=== PATIENT | male | born 1980 | race Caucasian/White ===

== ENCOUNTER 2018-08-23 16:27 | Observation (INO) | payer MEDICAID, OTHER ==
[2018-08-23 16:32] VITALS: BMI 18.3
--- NOTE | 2018-08-23 16:55 | ED PDOC ---
Arrival/HPI - General Chief Complaint: Back Pain Time Seen by Provider: 08/23/18 16:34 Historian: Patient - History of Present Illness Time/Duration: Prior to Arrival Symptom Onset: Sudden Symptom Course: Unchanged Severity Level: Severe Activities at Onset: Rest Associated Symptoms (Text): 08/23/18 16:52 Patient reports a history of chronic low back pain. Last epidural was in 2016. He reports that he was in his basement today and developed acute onset of severe right lower back pain with radiation into his buttocks and right lower extremity and up into the right side of his neck. He describes it as an electric shock. He reports the pain was so severe that it made him pass out. He found himself on the basement floor with no injury. He called 911 and was brought to the emergency department. He denies any headache dizziness or lightheadedness. There is right lower extremity numbness. No weakness. No chest pain palpitations or dyspnea. There is nausea but no abdominal pain or vomiting. This has never happened previously. No medications and no known allergies. Past Medical History - Psychiatric Hx Substance Use: Yes Family/Social History - Physician Review Nursing Documentation Reviewed: Yes Family/Social History: Unknown Family HX Smoking Status: Never Smoked Hx Alcohol Use: No Hx Substance Use: Yes Substance used: marijuana Allergies/Home Meds Allergies/Adverse Reactions: Allergies No Known Allergies Allergy (Verified 08/23/18 16:32) Home Medications: Home Meds Medication Instructions Recorded Confirmed No Known Home Med 08/23/18 08/23/18 Review of Systems - Physician Review All systems were reviewed & negative as marked: Yes - Review of Systems Constitutional: absent: Fatigue, Fevers Respiratory: absent: SOB, Cough, Wheezing Cardiovascular: Syncope. absent: Chest Pain, Palpitations Gastrointestinal: Nausea. absent: Abdominal Pain, Constipation, Diarrhea, Vomiting, Anorexia Genitourinary Male: absent: Dysuria, Frequency, Hematuria Neurological: absent: Headache, Dizziness, Focal Weakness, Gait Changes, Speech Changes, Facial Droop, Disequilibrium, Seizure Physical Exam Vital Signs Temp Pulse Resp BP Pulse Ox 08/23/18 16:32 97.7 F 86 18 136/83 98 Temperature: Afebrile Blood Pressure: Normal Pulse: Regular Respiratory Rate: Normal Appearance: Positive for: Well-Appearing, Non-Toxic, Comfortable, Uncomfortable, Other (thin) Pain Distress: Mild Mental Status: Positive for: Alert and Oriented X 3 - Systems Exam Head: Present: Atraumatic, Normocephalic Pupils: Present: PERRL Extroacular Muscles: Present: EOMI Conjunctiva: Present: Normal Mouth: Present: Moist Mucous Membranes Pharnyx: No: ERYTHEMA, EXUDATE, TONSILS ENLARGED Neck: Present: Normal Range of Motion Respiratory/Chest: Present: Clear to Auscultation, Good Air Exchange. No: Respiratory Distress, Accessory Muscle Use Cardiovascular: Present: Regular Rate and Rhythm, Normal S1, S2. No: Murmurs Abdomen: No: Tenderness, Distention, Peritoneal Signs, Rebound, Guarding Back: Present: Normal Inspection, Paraspinal Tenderness (right lumbar paraspinous tenderness and right sciatic notch tenderness with no swelling or skin changes). No: CVA Tenderness, Midline Tenderness Upper Extremity: Present: Normal Inspection. No: Cyanosis, Edema Lower Extremity: Present: Normal Inspection. No: Edema Neurological: Present: GCS=15, CN II-XII Intact, Speech Normal, Motor Func Grossly Intact, Normal Sensory Function, Normal Cerebellar Funct Skin: Present: Warm, Dry, Normal Color. No: Rashes Psychiatric: Present: Alert, Oriented x 3, Normal Insight, Normal Concentration Medical Decision Making ED Course and Treatment: 08/23/18 17:17 EKG shows normal sinus rhythm rate approximately 80 with a right bundle branch block and no acute ST or T-wave changes. 08/23/18 17:[address] Reviewed and shows: FINDINGS: HEMORRHAGE:No intracranial hemorrhage. BRAIN:No mass effect or edema. The licona-white matter differentiation appears intact. Please note that MRI with diffusion imaging is more sensitive in the detection of acute ischemic event. VENTRICLES:No hydrocephalus. CALVARIUM:Unremarkable. PARANASAL SINUSES:Partial opacification/fluid involving the right greater than left maxillary sinuses, the bilateral sphenoid sinuses, and ethmoid air cells. MASTOID AIR CELLS:Unremarkable as visualized. No inflammatory changes. OTHER FINDINGS:None. IMPRESSION: No acute intracranial pathology identified. Partial opacification and fluid involving the paranasal sinuses as above; correlate for acute sinusitis. 08/23/18 18:22 Symptoms markedly improved post Toradol. 08/23/18 18:22 Discussed with hospitalist, patient will be placed on telemetry observation for syncope. - RAD Interpretation Radiology Orders: 11/13/18 16:50 HEAD W/O CONTRAST [CT] Stat 08/23/18 16:51 CHEST PORTABLE [RAD] Stat CT scan of the head as read by the radiologist shows no acute findings other than paranasal sinusitis. Chest one view as read by the radiologist shows no infiltrate effusion or cardiomegaly. Instructional Design Technologist: Radiologist Disposition/Present on Arrival - Present on Arrival Any Indicators Present on Arrival: No History of DVT/PE: No History of Uncontrolled Diabetes: No Urinary Catheter: No History of Decub. Ulcer: No History Surgical Site Infection Following: None - Disposition Have Diagnosis and Disposition been Completed?: Yes Diagnosis: Syncope, Low back pain Disposition: HOSPITALIZED Disposition Time: 18:21 Patient Plan: Observation, Telemetry Condition: IMPROVED Discharge Instructions (ExitCare): Syncope (ED) Forms: [employer] (N[place]ian)
[2018-08-23 17:41] LABS: URINE BILIRUBIN NEGATIVE (NEGATIVE); URINE BLOOD NEGATIVE (NEGATIVE); URINE GLUCOSE (UA) NEGATIVE (NEGATIVE); URINE LEUKOCYTE ESTERASE NEGATIVE Leu/uL (NEGATIVE); URINE PROTEIN NEGATIVE mg/dL (<30 mg/dL); URINE UROBILINOGEN 0.2 E.U./dL (<1 E.U./dL)
[2018-08-23 17:42] LABS: BASO # 0.01 K/mm3 (0.0-2.0); BASO % 0.1 % (0.0-3.0); EOS # 0.3 (0.0-0.7); EOS % 2.7 % (1.5-5.0); GRAN # 7.32 (1.4-6.5); GRAN % 74.4 % (50.0-68.0); HEMOGLOBIN 14.1 g/dL (14.0-18.0); LYMPH # 1.8 (1.2-3.4); LYMPH % 17.9 % (22.0-35.0); MEAN CELL VOLUME 85.3 fl (80.0-105.0); MEAN CORPUSCULAR HEMOGLOBIN 29.3 pg (25.0-35.0); MEAN CORPUSCULAR HGB CONC 34.3 g/dl (31.0-37.0); MEAN PLATELET VOLUME 10.7 fl (7.0-11.0); MONO # 0.5 (0.1-0.6); MONO % 4.9 % (1.0-6.0); RBC 4.82 10^6/uL (3.5-6.1); RED CELL DISTRIBUTION WIDTH 12.9 % (11.5-14.5); URINE APPEARANCE CLEAR (CLEAR); URINE COLOR YELLOW (YELLOW); WHITE BLOOD COUNT 9.8 10^3/uL (4.5-11.0)
--- NOTE | 2018-08-23 17:50 | CT ---
Date of service: 08/23/2018 PROCEDURE: CT HEAD WITHOUT CONTRAST. HISTORY: syncope COMPARISON: None available. TECHNIQUE: Axial computed tomography images were obtained through the head/brain without intravenous contrast. Radiation dose: Total exam DLP = 999.28 mGy-cm. This CT exam was performed using one or more of the following dose reduction techniques: Automated exposure control, adjustment of the mA and/or kV according to patient size, and/or use of iterative reconstruction technique. FINDINGS: HEMORRHAGE: No intracranial hemorrhage. BRAIN: No mass effect or edema. The licona-white matter differentiation appears intact. Please note that MRI with diffusion imaging is more sensitive in the detection of acute ischemic event. VENTRICLES: No hydrocephalus. CALVARIUM: Unremarkable. PARANASAL SINUSES: Partial opacification/fluid involving the right greater than left maxillary sinuses, the bilateral sphenoid sinuses, and ethmoid air cells. MASTOID AIR CELLS: Unremarkable as visualized. No inflammatory changes. OTHER FINDINGS: None. IMPRESSION: No acute intracranial pathology identified. Partial opacification and fluid involving the paranasal sinuses as above; correlate for acute sinusitis.
[2018-08-23 17:53] LABS: ALB/GLOB RATIO 1.3 (1.1-1.8); ALBUMIN 4.5 g/dL (3.0-4.8); ALT/SGPT 24 U/L (7-56); AST/SGOT 23 U/L (17-59); BLOOD UREA NITROGEN 18 mg/dL (7-21); CALCIUM 9.3 mg/dL (8.4-10.5); GFR NON-AFRICAN AMERICAN > 60
[2018-08-23 18:12] LABS: BARBITURATES, UR NEGATIVE (NEGATIVE); BENZODIAZEPINES, UR NEGATIVE (NEGATIVE); OPIATES, UR NEGATIVE (NEGATIVE); PHENCYCLIDINE, UR NEGATIVE (NEGATIVE)
[2018-08-23 18:17] LABS: TROPONIN I < 0.01 ng/mL
--- NOTE | 2018-08-23 18:21 | RAD ---
Date of service: 08/23/2018 HISTORY: Syncope. COMPARISON: No prior. FINDINGS: LUNGS: No active pulmonary disease. PLEURA: No significant pleural effusion identified, no pneumothorax apparent. CARDIOVASCULAR: No atherosclerotic calcification present Normal. OSSEOUS STRUCTURES: No significant abnormalities. VISUALIZED UPPER ABDOMEN: Normal. OTHER FINDINGS: None. IMPRESSION: No active disease.
--- NOTE | 2018-08-23 19:09 | CARD ---
APPROVED REPORT Date of service: 08/23/2018 EKG Measurement Heart [id number] CT 130P60 [id number] <Conclusion> Normal sinus rhythm with sinus arrhythmia Rightward axis Incomplete right bundle branch block Borderline ECG
--- NOTE | 2018-08-23 19:40 | CP.PCM.HP ---
<Siri Jorge - Last Filed: 08/23/18 22:03> History of Present Illness - History of Present Illness History of Present Illness: Resident Siri Jorge DO PGY-1 H&P Note for Hospitalist: Dr. Lemus: CC: Back pain Pt is a 37yo M with pmhx of L5 disc herniation who presents to the ED after having an episode of acute sharp R sided back pain earlier today. Pt states that he had walked about 10 miles which is normal for him and then came back home. He then went to his basement and was eating when he stood up and felt sharp R sided back pain. He states that the pain traveled down his R leg and up to his R neck. He then states that after the sudden pain he lost consciousness. He reports that he woke up a few minutes later and was able to get up with his own strength. He denies biting his tongue, or having any bladder or bowel incontinence upon regaining consciousness. He also denies having a history of seizures. He denies ever having this type of pain before. He reports being able to get up by himself and then calling the ambulance. He is currently denying fevers, but admits to chills, denies lightheadedness, denies weakness, but admits to headache and R sided leg numbness. He also denies chest pain, SOB, cough, palpitations, abd pain, n/v, saddle anesthesia, bladder or bowel incontinence, dysuria, hematuria, urinary frequency, heat or cold intolerance. Pmhx: L5 disc herniation Pshx: 2 epidural injections '16 Meds: None All: NKDA Social: Smokes marijuana but no tobacco use, denies EtOH or illicit drug use Fam Hx: Non-contributory PMD: None - Recently moved here Pharm: None Present on Admission - Present on Admission Any Indicators Present on Admission: No Review of Systems - Review of Systems All systems: reviewed and no additional remarkable complaints except Review of Systems: 12 point ROS is negative expect for noted in HPI above. Past Patient History - Past Social History Smoking Status: Never Smoked - PSYCHIATRIC Hx Substance Use: Yes - SURGICAL HISTORY Hx Surgeries: No Meds Allergies/Adverse Reactions: Allergies Allergy/AdvReac Type Severity Reaction Status Date / Time No Known Allergies Allergy Verified 08/23/18 16:32 Physical Exam - Constitutional Appears: Well, Non-toxic, No Acute Distress - Head Exam Head Exam: ATRAUMATIC, NORMAL INSPECTION, NORMOCEPHALIC - Eye Exam Eye Exam: EOMI, Normal appearance, PERRL - Respiratory Exam Respiratory Exam: Clear to Auscultation Bilateral, NORMAL BREATHING PATTERN. absent: Accessory Muscle Use, Decreased Breath Sounds, Rales, Rhonchi, Wheezes, Respiratory Distress, Stridor - Cardiovascular Exam Cardiovascular Exam: RRR, +S1, +S2. absent: Gallop, Rubs - GI/Abdominal Exam GI & Abdominal Exam: Normal Bowel Sounds, Soft. absent: Firm, Guarding, Tenderness - Extremities Exam Extremities exam: Positive for: full ROM, normal capillary refill, normal inspection, pedal pulses present. Negative for: calf tenderness, pedal edema, tenderness - Back Exam Back exam: NORMAL INSPECTION, paraspinal tenderness (Present on the R cervical region upon palpation.). absent: CVA tenderness (L), CVA tenderness (R), vertebral tenderness - Neurological Exam Neurological exam: Alert, CN II-XII Intact, Oriented x3 Additional comments: Pt denies any motor deficit, strength is 5/5 in all extremities b/l. Pts ROM is wnl in all extremities and there is no limitation of movement due to pain. Pt does not have a positive straight leg raise. - Psychiatric Exam Psychiatric exam: Normal Affect, Normal Mood - Skin Skin Exam: Dry, Intact, Normal Color, Warm Results - Vital Signs Recent Vital Signs: Last Vital Signs Temp 97.7 F 08/23/18 16:32 Pulse 62 08/23/18 18:40 Resp 20 08/23/18 18:40 BP 134/73 08/23/18 18:40 Pulse Ox 98 08/23/18 18:40 - Labs Result Diagrams: 08/23/18 17:37 08/23/18 17:37 Labs: Laboratory Results - last 24 hr 08/23/18 08/23/18 08/23/18 17:37 17:37 17:37 WBC 9.8 RBC 4.82 Hgb 14.1 Hct 41.1 L MCV 85.3 MCH 29.3 MCHC 34.3 RDW 12.9 Plt Count 159 MPV 10.7 Gran % 74.4 H Lymph % (Auto) 17.9 L [place] % (Auto) 4.9 Eos % (Auto) 2.7 Baso % (Auto) 0.1 Gran # 7.32 H Lymph # (Auto) 1.8 [place] # (Auto) 0.5 Eos # (Auto) 0.3 Baso # (Auto) 0.01 Sodium 138 Potassium 3.7 Chloride 103 Carbon Dioxide 27 Anion Gap 12 BUN 18 Creatinine 1.0 Est GFR ( Amer) > 60 Est GFR (Non-Af Amer) > 60 Random Glucose 126 H Calcium 9.3 Phosphorus 3.4 Magnesium 2.0 Total Bilirubin 0.8 AST 23 ALT 24 Alkaline Phosphatase 82 Lactate Dehydrogenase 362 Total Creatine Kinase 151 Troponin I < 0.01 Total Protein 8.0 Albumin 4.5 Globulin 3.5 Albumin/Globulin Ratio 1.3 Urine Color Yellow Urine Appearance Clear Urine pH 6.0 Ur Specific [place] >= 1.030 Urine Protein Negative Urine Glucose (UA) Negative Urine Ketones Negative Urine Blood Negative Urine Nitrate Negative Urine Bilirubin Negative Urine Urobilinogen 0.2 Ur Leukocyte Esterase Negative Urine Opiates Screen Urine Methadone Screen Ur Barbiturates Screen Ur Phencyclidine Scrn Ur Amphetamines Screen U Benzodiazepines Scrn U Oth Cocaine Metabols U Cannabinoids Screen Alcohol, Quantitative 08/23/18 08/23/18 17:37 17:37 WBC RBC Hgb Hct MCV MCH MCHC RDW Plt Count MPV Gran % Lymph % (Auto) [place] % (Auto) Eos % (Auto) Baso % (Auto) Gran # Lymph # (Auto) [place] # (Auto) Eos # (Auto) Baso # (Auto) Sodium Potassium Chloride Carbon Dioxide Anion Gap BUN Creatinine Est GFR ( Amer) Est GFR (Non-Af Amer) Random Glucose Calcium Phosphorus Magnesium Total Bilirubin AST ALT Alkaline Phosphatase Lactate Dehydrogenase Total Creatine Kinase Troponin I Total Protein Albumin Globulin Albumin/Globulin Ratio Urine Color Urine Appearance Urine pH Ur Specific [place] Urine Protein Urine Glucose (UA) Urine Ketones Urine Blood Urine Nitrate Urine Bilirubin Urine Urobilinogen Ur Leukocyte Esterase Urine Opiates Screen Negative Urine Methadone Screen Negative Ur Barbiturates Screen Negative Ur Phencyclidine Scrn Negative Ur Amphetamines Screen Negative U Benzodiazepines Scrn Negative U Oth Cocaine Metabols Negative U Cannabinoids Screen Positive H Alcohol, Quantitative < 10 Assessment & Plan - Assessment and Plan (Free Text) Assessment: Pt is a 37yo M with pmhx of L5 disc herniation who presents to the ED after havi ng an episode of acute sharp R sided back pain earlier today. In the ED CT head was done which showed no acute intracranial pathology and CXR also showed no active disease. Plan: 1. Acute back pain with hx of L5 disc herniation with syncopal episode: - CPK - CT Lumbar spine - Toradol 30mg IVP Q6 PRN - Neuro checks q4 - Orthostatic vitals - Fall precautions 2. PPX: DVT: SCDs GI: Protonix Case seen and discussed with Dr. Lynn Jorge DO Internal Medicine PGY-1 <Letha Bailey - Last Filed: 08/24/18 02:16> Results - Vital Signs Recent Vital Signs: Last Vital Signs Temp 98.3 F 08/23/18 21:49 Pulse 60 08/23/18 21:49 Resp 17 08/23/18 21:49 BP 131/66 08/23/18 21:49 Pulse Ox 98 08/23/18 21:49 - Labs Result Diagrams: 08/23/18 17:37 08/23/18 17:37 Labs: Laboratory Results - last 24 hr 08/23/18 08/23/18 08/23/18 17:37 17:37 17:37 WBC 9.8 RBC 4.82 Hgb 14.1 Hct 41.1 L MCV 85.3 MCH 29.3 MCHC 34.3 RDW 12.9 Plt Count 159 MPV 10.7 Gran % 74.4 H Lymph % (Auto) 17.9 L [place] % (Auto) 4.9 Eos % (Auto) 2.7 Baso % (Auto) 0.1 Gran # 7.32 H Lymph # (Auto) 1.8 [place] # (Auto) 0.5 Eos # (Auto) 0.3 Baso # (Auto) 0.01 Sodium 138 Potassium 3.7 Chloride 103 Carbon Dioxide 27 Anion Gap 12 BUN 18 Creatinine 1.0 Est GFR ( Amer) > 60 Est GFR (Non-Af Amer) > 60 Random Glucose 126 H Calcium 9.3 Phosphorus 3.4 Magnesium 2.0 Total Bilirubin 0.8 AST 23 ALT 24 Alkaline Phosphatase 82 Lactate Dehydrogenase 362 Total Creatine Kinase 151 Troponin I < 0.01 Total Protein 8.0 Albumin 4.5 Globulin 3.5 Albumin/Globulin Ratio 1.3 Urine Color Yellow Urine Appearance Clear Urine pH 6.0 Ur Specific [place] >= 1.030 Urine Protein Negative Urine Glucose (UA) Negative Urine Ketones Negative Urine Blood Negative Urine Nitrate Negative Urine Bilirubin Negative Urine Urobilinogen 0.2 Ur Leukocyte Esterase Negative Urine Opiates Screen Urine Methadone Screen Ur Barbiturates Screen Ur Phencyclidine Scrn Ur Amphetamines Screen U Benzodiazepines Scrn U Oth Cocaine Metabols U Cannabinoids Screen Alcohol, Quantitative 08/23/18 08/23/18 17:37 17:37 WBC RBC Hgb Hct MCV MCH MCHC RDW Plt Count MPV Gran % Lymph % (Auto) [place] % (Auto) Eos % (Auto) Baso % (Auto) Gran # Lymph # (Auto) [place] # (Auto) Eos # (Auto) Baso # (Auto) Sodium Potassium Chloride Carbon Dioxide Anion Gap BUN Creatinine Est GFR ( Amer) Est GFR (Non-Af Amer) Random Glucose Calcium Phosphorus Magnesium Total Bilirubin AST ALT Alkaline Phosphatase Lactate Dehydrogenase Total Creatine Kinase Troponin I Total Protein Albumin Globulin Albumin/Globulin Ratio Urine Color Urine Appearance Urine pH Ur Specific [place] Urine Protein Urine Glucose (UA) Urine Ketones Urine Blood Urine Nitrate Urine Bilirubin Urine Urobilinogen Ur Leukocyte Esterase Urine Opiates Screen Negative Urine Methadone Screen Negative Ur Barbiturates Screen Negative Ur Phencyclidine Scrn Negative Ur Amphetamines Screen Negative U Benzodiazepines Scrn Negative U Oth Cocaine Metabols Negative U Cannabinoids Screen Positive H Alcohol, Quantitative < 10 Attending/Attestation - Attestation I have personally seen and examined this patient.: Yes I have fully participated in the care of the patient.: Yes I have reviewed all pertinent clinical information: Yes Notes (Text): 08/24/18 01:53 Addendum:Social history includes history of smoking Marijuana(It is Incorrectly documented under Psych history.) Psych history: none O/E neck is supple.Slight R paracervical tenderness noted. Neuro Exam : No motor or sensory deficit noted. Leg raising test is negative on both sides. Assessment: 1. Acute backpain secondary to herniated disc.. 2.Syncopal Episode probably Vasovagal response to pain. Plan :Protonix ordered for GI prophylaxis. 08/24/18 02:15
[2018-08-24] MEDS: Pantoprazole 40 mg EC Tab PO SCH (05:58)
[2018-08-24 06:33] LABS: HEMOGLOBIN 14.7 g/dL (14.0-18.0); MEAN CELL VOLUME 85.5 fl (80.0-105.0); MEAN CORPUSCULAR HEMOGLOBIN 29.2 pg (25.0-35.0); MEAN CORPUSCULAR HGB CONC 34.1 g/dl (31.0-37.0); MEAN PLATELET VOLUME 11.1 fl (7.0-11.0); RBC 5.04 10^6/uL (3.5-6.1); RED CELL DISTRIBUTION WIDTH 12.9 % (11.5-14.5); WHITE BLOOD COUNT 7.8 10^3/uL (4.5-11.0)
[2018-08-24 07:18] LABS: ALB/GLOB RATIO 1.2 (1.1-1.8); ALBUMIN 4.4 g/dL (3.0-4.8); ALT/SGPT 24 U/L (7-56); AST/SGOT 31 U/L (17-59); BLOOD UREA NITROGEN 18 mg/dL (7-21); CALCIUM 9.4 mg/dL (8.4-10.5); GFR NON-AFRICAN AMERICAN > 60
--- NOTE | 2018-08-24 08:24 | CT ---
Date of service: 08/24/2018 PROCEDURE: CT Lumbar Spine without contrast HISTORY: Back pain hx of herniated disk COMPARISON: None available. TECHNIQUE: Axial computed tomography images were obtained of the lumbar spine without the use of intravenous contrast. Coronal and sagittal reformatted images were created and reviewed. Radiation dose: Total exam DLP = 306.99 mGy-cm. This CT exam was performed using one or more of the following dose reduction techniques: Automated exposure control, adjustment of the mA and/or kV according to patient size, and/or use of iterative reconstruction technique. FINDINGS: VERTEBRAE: Unremarkable. No fracture. Normal alignment. DISCS/SPINAL CANAL/NEURAL FORAMINA: L1-2: Unremarkable. L2-3: Unremarkable. L3-4: Mild disc bulge L4-5: Mild disc bulge L5-S1: Disc bulge and mild bilateral foraminal stenosis. PARASPINAL SOFT TISSUES: Unremarkable. OTHER FINDINGS: None. IMPRESSION: Mild disc bulge at L3-4 and L4-5. Disc bulge in degeneration at L5-S1 with mild foraminal stenosis. No focal disc herniation.
[2018-08-24 08:50] LABS: CK-MB 0.6 ng/mL (0.0-3.6)
[2018-08-24] MEDS ORDERED: Sodium Chloride 0.9% 100 ML IV SCH (09:45)
--- NOTE | 2018-08-24 10:23 | MRI ---
Date of service: 08/24/2018 PROCEDURE: MRI BRAIN WITHOUT CONTRAST HISTORY: loss of consciousness COMPARISON: None available. TECHNIQUE: Multiplanar, multisequence MR images of the brain were obtained without intravenous contrast enhancement. FINDINGS: HEMORRHAGE: None DWI: No evidence of an acute or early subacute infarction. BRAIN PARENCHYMA: No mass effect or edema. No atrophy or chronic microvascular ischemic changes. VENTRICLES: Unremarkable. No hydrocephalus. CRANIUM: Unremarkable. ORBITS: Grossly unremarkable. PARANASAL SINUSES/MASTOIDS: Clear VASCULAR SYSTEM: Skull base flow voids intact. OTHER FINDINGS: None. IMPRESSION: Unremarkable non contrast enhanced MRI of the brain.
--- NOTE | 2018-08-24 10:29 | CP.PCM.CON ---
History of Present Illness - History of Present Illness History of Present Illness: Neurology Consultation Note: Mr. Mckeon is a 37-year-old man with a past medical history of right L5 nerve root compression due to disc herniation, who states that he walked 10 miles yesterday, went home, sat down, stood up and had severe back pain, radiating to the neck/shoulder and resulted in sudden collapse and syncope. The patient regained consciousness, and was able to ambulate and presented to the ED for evaluation. He continues to have back pain, but no focal weakness or changes in his baseline function. MRI of the brain was normal. CT of the lumbar spine showed mild foraminal stenosis at L5/S1 with disc herniation. Review of Systems - Constitutional Constitutional: As Per HPI - EENT Eyes: absent: As Per HPI, Blind Spots, Blurred Vision, Change in Vision, Decreased Night Vision, Diplopia, Discharge, Dry Eye, Exophthalmos, Floaters, Irritation, Itchy Eyes, Loss of Peripheral Vision, Pain, Photophobia, Requires Corrective Lenses, Sees Flashes, Spots in Vision, Tunnel Vision, Other Visual Disturbances, Loss of Vision, Other Ears: absent: As Per HPI, Decreased Hearing, Ear Discharge, Ear Pain, Tinnitus, Abnormal Hearing, Disequilibrium, Dizziness, Other Nose/Mouth/Throat: absent: As Per HPI, Epistaxis, Nasal Congestion, Nasal Discharge, Nasal Obstruction, Nasal Trauma, Nose Pain, Post Nasal Drip, Sinus Pain, Sinus Pressure, Bleeding Gums, Change in Voice, Dental Pain, Dry Mouth, Dysphagia, Halitosis, Hoarsness, Lip Swelling, Mouth Lesions, Mouth Pain, Odynophagia, Sore Throat, Throat Swelling, Tongue Swelling, Facial Pain, Neck Pain, Neck Mass, Other - Cardiovascular Cardiovascular: absent: As Per HPI, Acrocyanosis, Chest Pain, Chest Pain at Rest, Chest Pain with Activity, Claudication, Diaphoresis, Dyspnea, Dyspnea on Exertion, Edema, Irregular Heart Rhythm, Pain Radiating to Arm/Neck/Jaw, Leg Edema, Leg Ulcers, Lightheadedness, Orthopnea, Palpitations, Paroxysmal Nocturnal Dyspnea, Pedal Edema, Radiating Pain, Rapid Heart Rate, Slow Heart Rate, Syncope, Other - Respiratory Respiratory: absent: As Per HPI, Cough, Dyspnea, Hemoptysis, Dyspnea on Exertion, Wheezing, Snoring, Stridor, Pain on Inspiration, Chest Congestion, Excessive Mucous Production, Change in Mucous Color, Pain with Coughing, Other - Gastrointestinal Gastrointestinal: absent: As Per HPI, Abdominal Pain, Belching, Bloating, Change in Bowel Habits, Change in Stool Character, Coffee Ground Emesis, Constipation, Cramping, Diarrhea, Dyspepsia, Dysphagia, Early Satiety, Excessive Flatus, Fecal Incontinence, Heartburn, Hematemesis, Hematochezia, Loose Stools, Melena, Nausea, Odynophagia, Temesmus, Vomiting, Other - Genitourinary Genitourinary: absent: As Per HPI, Change in Urinary Stream, Difficulty Urina ting, Dysuria, Flank Pain, Hematuria, Pyuria, Nocturia, Urinary Incontinence, Urinary Frequency, Urinary Hesitance, Urinary Urgency, Voiding Freq/Small Amts, Freq UTI, Hx Renal/Bladder Calculi, Hx /Renal Surgery, Bladder Distension, Other - Musculoskeletal Musculoskeletal: As Per HPI - Integumentary Integumentary: absent: As Per HPI, Acne, Alopecia, Bleeding Lesions, Change in Hair, Change in Nails, Change in Pigmentation, Changing Lesions, Dry Skin, Erythema, Furuncle, Hirsutism, Lesions, New Lesions, Non-Healing Lesions, Photosensitivity, Pruritus, Rash, Skin Pain, Skin Ulcer, Sores, Striae, Swelling, Unusual Bruising, Wounds, Jaundice, Other - Neurological Neurological: As Per HPI - Psychiatric Psychiatric: absent: As Per HPI, Abnormal Sleep Pattern, Anhedonia, Anxiety, Auditory Hallucinations, Behavioral Changes, Change in Appetite, Change in Libido, Confusion, Depression, Difficulty Concentrating, Hallucinations, Homicidal Ideation, Hopelessness, Irritability, Memory Loss, Mood Swings, Panic Attacks, Paranoia, Suicidal Ideation, Visual Hallucinations, Tactile Hallucinations, Other - Endocrine Endocrine: absent: As Per HPI, Change in Body Appearance, Change in Libido, Cold Intolorance, Deepening of Voice, Excessive Sweating, Fatigue, Flushing, Heat Intolorance, Increase in Ring/Shoe/Hat Size, Palpitations, Polydipsia, Polyphagia, Polyuria, Other - Hematologic/Lymphatic Hematologic: absent: As Per HPI, Easy Bleeding, Easy Bruising, Lymphadenopathy, Other Past Patient History - Past Social History Smoking Status: Current Some Days Smoker - MUSCULOSKELETAL/RHEUMATOLOGICAL Hx Falls: No Other/Comment: Sciatica. Epidural x2 - PSYCHIATRIC Hx Substance Use: Yes - SURGICAL HISTORY Hx Surgeries: No Meds Allergies/Adverse Reactions: Allergies Allergy/AdvReac Type Severity Reaction Status Date / Time No Known Allergies Allergy Verified 08/23/18 16:32 - Medications Medications: Current Medications Cyclobenzaprine HCl (Flexeril) 5 mg PO TID PRN PRN Reason: Pain, moderate (4-7) Sodium Chloride (Sodium Chloride 0.9%) 100 mls @ 125 mls/hr IV .Q48M [facility] Ketorolac Tromethamine (Toradol) 30 mg IVP Q6 PRN PRN Reason: Pain, moderate (4-7) Last Admin: 08/23/18 21:42 Dose: 30 mg Pantoprazole Sodium (Protonix Ec Tab) 40 mg PO 0600 [place] Last Admin: 08/24/18 05:58 Dose: 40 mg Physical Exam - Constitutional Appears: Well - Head Exam Head Exam: ATRAUMATIC, NORMAL INSPECTION, NORMOCEPHALIC - Eye Exam Eye Exam: EOMI, Normal appearance, PERRL - ENT Exam ENT Exam: Mucous Membranes Moist, Normal Exam - Neck Exam Neck exam: Positive for: Normal Inspection - Respiratory Exam Respiratory Exam: Clear to Auscultation Bilateral, NORMAL BREATHING PATTERN - Cardiovascular Exam Cardiovascular Exam: REGULAR RHYTHM, +S1, +S2 - GI/Abdominal Exam GI & Abdominal Exam: Normal Bowel Sounds, Soft. absent: Tenderness - Rectal Exam Rectal Exam: Deferred - Extremities Exam Extremities exam: Positive for: normal inspection - Back Exam Back exam: CVA tenderness (R), paraspinal tenderness, vertebral tenderness - Neurological Exam Neurological exam: Alert, CN II-XII Intact, Normal Gait, Oriented x3, Reflexes Normal - Psychiatric Exam Psychiatric exam: Normal Affect, Normal Mood - Skin Skin Exam: Dry, Intact, Normal Color, Warm Results - Vital Signs Recent Vital Signs: Last Vital Signs Temp 97.9 F 08/24/18 06:00 Pulse 62 08/24/18 06:00 Resp 22 08/24/18 06:00 BP 121/70 08/24/18 06:00 Pulse Ox 98 08/24/18 06:00 - Labs Result Diagrams: 08/24/18 06:00 08/24/18 06:00 Labs: Laboratory Results - last 24 hr 11/13/18 11/13/18 11/13/18 17:37 17:37 17:37 WBC 9.8 RBC 4.82 Hgb 14.1 Hct 41.1 L MCV 85.3 MCH 29.3 MCHC 34.3 RDW 12.9 Plt Count 159 MPV 10.7 Gran % 74.4 H Lymph % (Auto) 17.9 L [place] % (Auto) 4.9 Eos % (Auto) 2.7 Baso % (Auto) 0.1 Gran # 7.32 H Lymph # (Auto) 1.8 [place] # (Auto) 0.5 Eos # (Auto) 0.3 Baso # (Auto) 0.01 Sodium 138 Potassium 3.7 Chloride 103 Carbon Dioxide 27 Anion Gap 12 BUN 18 Creatinine 1.0 Est GFR ( Amer) > 60 Est GFR (Non-Af Amer) > 60 Random Glucose 126 H Calcium 9.3 Phosphorus 3.4 Magnesium 2.0 Total Bilirubin 0.8 AST 23 ALT 24 Alkaline Phosphatase 82 Lactate Dehydrogenase 362 Total Creatine Kinase 151 CK-MB (CK-2) CK-MB (CK-2) % Troponin I < 0.01 Total Protein 8.0 Albumin 4.5 Globulin 3.5 Albumin/Globulin Ratio 1.3 Urine Color Yellow Urine Appearance Clear Urine pH 6.0 Ur Specific [place] >= 1.030 Urine Protein Negative Urine Glucose (UA) Negative Urine Ketones Negative Urine Blood Negative Urine Nitrate Negative Urine Bilirubin Negative Urine Urobilinogen 0.2 Ur Leukocyte Esterase Negative Urine Opiates Screen Urine Methadone Screen Ur Barbiturates Screen Ur Phencyclidine Scrn Ur Amphetamines Screen U Benzodiazepines Scrn U Oth Cocaine Metabols U Cannabinoids Screen Alcohol, Quantitative 08/23/18 08/23/18 08/24/18 17:37 17:37 06:00 WBC RBC Hgb Hct MCV MCH MCHC RDW Plt Count MPV Gran % Lymph % (Auto) [place] % (Auto) Eos % (Auto) Baso % (Auto) Gran # Lymph # (Auto) [place] # (Auto) Eos # (Auto) Baso # (Auto) Sodium 141 Potassium 4.4 Chloride 106 Carbon Dioxide 27 Anion Gap 13 BUN 18 Creatinine 1.1 Est GFR ( Amer) > 60 Est GFR (Non-Af Amer) > 60 Random Glucose 95 Calcium 9.4 Phosphorus 4.0 Magnesium 2.2 Total Bilirubin 1.5 H AST 31 ALT 24 Alkaline Phosphatase 75 Lactate Dehydrogenase Total Creatine Kinase 297 H CK-MB (CK-2) 0.6 CK-MB (CK-2) % Cancelled Troponin I Total Protein 8.0 Albumin 4.4 Globulin 3.6 Albumin/Globulin Ratio 1.2 Urine Color Urine Appearance Urine pH Ur Specific [place] Urine Protein Urine Glucose (UA) Urine Ketones Urine Blood Urine Nitrate Urine Bilirubin Urine Urobilinogen Ur Leukocyte Esterase Urine Opiates Screen Negative Urine Methadone Screen Negative Ur Barbiturates Screen Negative Ur Phencyclidine Scrn Negative Ur Amphetamines Screen Negative U Benzodiazepines Scrn Negative U Oth Cocaine Metabols Negative U Cannabinoids Screen Positive H Alcohol, Quantitative < 10 08/24/18 06:00 WBC 7.8 D RBC 5.04 Hgb 14.7 Hct 43.1 MCV 85.5 MCH 29.2 MCHC 34.1 RDW 12.9 Plt Count 168 MPV 11.1 H Gran % Lymph % (Auto) [place] % (Auto) Eos % (Auto) Baso % (Auto) Gran # Lymph # (Auto) [place] # (Auto) Eos # (Auto) Baso # (Auto) Sodium Potassium Chloride Carbon Dioxide Anion Gap BUN Creatinine Est GFR ( Amer) Est GFR (Non-Af Amer) Random Glucose Calcium Phosphorus Magnesium Total Bilirubin AST ALT Alkaline Phosphatase Lactate Dehydrogenase Total Creatine Kinase CK-MB (CK-2) CK-MB (CK-2) % Troponin I Total Protein Albumin Globulin Albumin/Globulin Ratio Urine Color Urine Appearance Urine pH Ur Specific [place] Urine Protein Urine Glucose (UA) Urine Ketones Urine Blood Urine Nitrate Urine Bilirubin Urine Urobilinogen Ur Leukocyte Esterase Urine Opiates Screen Urine Methadone Screen Ur Barbiturates Screen Ur Phencyclidine Scrn Ur Amphetamines Screen U Benzodiazepines Scrn U Oth Cocaine Metabols U Cannabinoids Screen Alcohol, Quantitative Assessment & Plan (1) Syncope Assessment and Plan: Likely vaso-vagal syncope due to severe pain experienced by the patient. MRI brain is normal, exam is non-focal and the patient does not have any residual symptoms. Continue pain management per primary team. Cardiology input is also recommended for possible dysrrhythmia. Thank you for this consultation. Status: Acute
--- NOTE | 2018-08-24 12:16 | CP.PCM.PN ---
Subjective - Date & Time of Evaluation Date of Evaluation: 08/24/18 Time of Evaluation: 12:12 - Subjective Subjective: Resident Siri Jorge DO PGY-1 H&P Note for Hospitalist: Dr. Hunter: Pt was seen and examined this morning at bedside. He states that he is feeling much better and is no longer having any numbness or tingling. Pt denies any acute overnight events. He is able to tolerate his diet with no associated n/v. He is able to walk without assistance and is having no dysuria and is having normal BMs per pt. He denies any numbness, tingling, weakness, headache, dizziness, chest pain, SOB, cough, n/v, abd pain, dysuria, frequency. He continues to admit to cervical neck paraspinal muscle tightness and difficulty moving neck but with no associated numbness tingling. Objective - Vital Signs/Intake and Output Vital Signs (last 24 hours): Temp Pulse Resp BP Pulse Ox 97.9 F 62 22 121/70 98 08/24/18 06:00 08/24/18 06:00 08/24/18 06:00 08/24/18 06:00 08/24/18 06:00 Intake and Output: 08/24/18 08/24/18 06:59 18:59 Intake Total 240 Balance 240 - Medications Medications: Current Medications Cyclobenzaprine HCl (Flexeril) 5 mg PO TID PRN PRN Reason: Pain, moderate (4-7) Sodium Chloride (Sodium Chloride 0.9%) 100 mls @ 125 mls/hr IV .Q48M [facility] Ketorolac Tromethamine (Toradol) 30 mg IVP Q6 PRN PRN Reason: Pain, moderate (4-7) Last Admin: 08/23/18 21:42 Dose: 30 mg Pantoprazole Sodium (Protonix Ec Tab) 40 mg PO 0600 [facility] Last Admin: 08/24/18 05:58 Dose: 40 mg - Labs Labs: 08/24/18 06:00 08/24/18 06:00 - Constitutional Appears: Well, Non-toxic, No Acute Distress - Head Exam Head Exam: ATRAUMATIC, NORMAL INSPECTION, NORMOCEPHALIC - Eye Exam Eye Exam: EOMI, Normal appearance, PERRL - Neck Exam Neck Exam: Normal Inspection, Tenderness (paraspinal cervical tenderness upon palpation worse on R than L). absent: Lymphadenopathy, Meningismus - Respiratory Exam Respiratory Exam: Clear to Ausculation Bilateral, NORMAL BREATHING PATTERN. absent: Accessory Muscle Use, Decreased Breath Sounds, Rales, Rhonchi, Wheezes, Respiratory Distress, Stridor - Cardiovascular Exam Cardiovascular Exam: RRR, +S1, +S2. absent: Gallop, Rubs - GI/Abdominal Exam GI & Abdominal Exam: Soft, Normal Bowel Sounds. absent: Tenderness - Extremities Exam Extremities Exam: Full ROM, Normal Capillary Refill, Normal Inspection. absent: Calf Tenderness, Pedal Edema, Tenderness - Back Exam Back Exam: NORMAL INSPECTION. absent: CVA tenderness (L), CVA tenderness (R) - Neurological Exam Neurological Exam: Alert, Awake, Oriented x3 - Psychiatric Exam Psychiatric exam: Normal Affect, Normal Mood Assessment and Plan - Assessment and Plan (Free Text) Assessment: Pt is a 37yo M with pmhx of L5 disc herniation who presents to the ED after alvarado ving an episode of acute sharp R sided back pain earlier today. In the ED CT head was done which showed no acute intracranial pathology and CXR also showed no active disease. Plan: 1. Acute back pain with hx of L5 disc herniation with syncopal episode: Improv ing - CPK - elevated from first drawing and is now 297 - CT Lumbar spine - Showed no disc herniation but disc bulge and b/l forminal stenosis on L5-S1 - Toradol 30mg IVP Q6 PRN - Neuro checks q4 - Orthostatic vitals - Fall precautions - Neuro Consulted, recs appreciated - Cardio consulted, recs appreciated - Flexiril 5mg TID PRN for muscle spasm - Spine XR to assess for compression fracture 2. PPX: DVT: SCDs GI: Protonix Case seen and discussed with Dr. Dale Jorge DO Internal Medicine PGY-1
[2018-08-24] MEDS ORDERED: Sodium Chloride 0.9% 1,000 ML IV SCH (13:30)
--- NOTE | 2018-08-24 17:29 | CON ---
DATE: 08/24/2018 REASON FOR CONSULTATION: Syncopal episode. HISTORY OF PRESENT ILLNESS: The patient is a 37-year-old male originally from [facility], who has history of infrequently fainting spell in the past. He is otherwise athletic and smokes pot. He presented because of a fainting episode. The patient stated that after he arrived home and he was by himself, as he tried to stand up, he felt very lightheaded and collapsed to the floor. He sustained no injuries and does not recall experiencing palpitation prior to that. The patient stated he has had three to four similar episodes in the past over the recent years. The patient is unaware of any present cardiac history. The patient has chronic low back pain for which he takes medications, and at one point, he received subdural injection. SOCIAL HISTORY: He smokes pot. MEDICATIONS: Flexeril 5 mg t.i.d., Protonix 40 mg once a day, normal saline 125 mL an hour, Toradol 30 mg intravenous every 6 hours, PHYSICAL EXAMINATION GENERAL: The patient is a middle-aged male, who does not appear to be in any distress. VITAL SIGNS: Blood pressure 121/70, heart rate 62, temperature 97.9, and earlier heart rate was 46. HEENT: Normocephalic. CHEST: Clear. HEART: S1 and S2 regular. ABDOMEN: Soft. EXTREMITIES: No edema. IMAGING: Repeat EKG revealed sinus rhythm rightward axis, incomplete right bundle-branch block. Lumbar spine CAT scan without contrast, mild disk bulge L3-L4 and L4-L5, mild bulge and degeneration at L5-S1, mild foraminal stenosis. Brain MRI with contrast, unremarkable study. LABORATORIES: Urine drug screen is positive for cannabinoids. SMA-7 today is within normal limit. One set of troponin is negative. Hemoglobin, hematocrit, white count, and platelet count are within normal limit. ASSESSMENT: 1. Syncopal episode. 2. Cannabinoid abuse. 3. Chronic low back pain. RECOMMENDATIONS: Continue current pain management and telemetry monitoring. Obtain an echocardiogram. Joaquin Gallegos MD
--- NOTE | 2018-08-24 20:35 | CARD ---
APPROVED REPORT Date of service: 08/24/2018 EXAM: Two-dimensional and M-mode echocardiogram with Doppler and color Doppler. INDICATION Syncope 2D DIMENSIONS IVSd1.1 (0.7-1.1cm)LVDd5.0 (3.9-5.9cm) PWd0.9 (0.7-1.1cm)LVDs3.3 (2.5-4.0cm) FS (%) 34.3 %LVEF (%)62.9 (>50%) M-Mode DIMENSIONS Aortic Root2.90 (2.2-3.7cm)Aortic Cusp Exc.1.90 (1.5-2.0cm) Aortic Valve AoV Peak Bpjitsjf151.0cm/Ugo Peak GR.7mmHg Mitral Valve MV E Juonzxoq10.5cm/sMV A Yhuwofvv68.0cm/sE/A ratio1.7 TDI E/Lateral E'0.0E/Medial E'0.0 Pulmonary Valve PV Peak Oypydnwa23.1cm/sPV Peak Grad.2mmHg Tricuspid Valve TR Peak [id number]/sRAP [id number] Peak Gr.18mmHg [id number] LEFT VENTRICLE The left ventricle is normal size. There is normal left ventricular wall thickness. The left ventricular function is normal. The left ventricular ejection fraction is within the normal range. There is normal LV segmental wall motion. The left ventricular diastolic function is normal. RIGHT VENTRICLE The right ventricle is normal size. There is normal right ventricular wall thickness. The right ventricular systolic function is normal. ATRIA The left atrium size is normal. The right atrium size is normal. AORTIC VALVE The aortic valve is normal in structure. No aortic regurgitation is present. There is no aortic valvular stenosis. MITRAL VALVE The mitral valve is normal in structure. There is no mitral valve regurgitation noted. There is no mitral valve stenosis. TRICUSPID VALVE The tricuspid valve is normal in structure. There is mild tricuspid regurgitation. PULMONIC VALVE The pulmonary valve is normal in structure. There is no pulmonic valvular regurgitation. GREAT VESSELS The aortic root is normal in size. The IVC is normal in size and collapses >50% with inspiration. <Conclusion> The left ventricle is normal size. There is normal left ventricular wall thickness. The left ventricular function is normal. The left ventricular ejection fraction is within the normal range. There is normal LV segmental wall motion. The left ventricular diastolic function is normal. There is mild tricuspid regurgitation.
[2018-08-25 05:43] VITALS: RESP 20; O2SAT 98
[2018-08-25] MEDS: Pantoprazole 40 mg EC Tab PO SCH (05:57)
[2018-08-25 06:53] LABS: ALB/GLOB RATIO 1.2 (1.1-1.8); ALBUMIN 4.1 g/dL (3.0-4.8); ALT/SGPT 25 U/L (7-56); AST/SGOT 29 U/L (17-59); BLOOD UREA NITROGEN 15 mg/dL (7-21); GFR NON-AFRICAN AMERICAN > 60
[2018-08-25 06:57] LABS: HEMOGLOBIN 14.2 g/dL (14.0-18.0); MEAN CORPUSCULAR HEMOGLOBIN 29.6 pg (25.0-35.0); MEAN CORPUSCULAR HGB CONC 34.5 g/dl (31.0-37.0); MEAN PLATELET VOLUME 10.8 fl (7.0-11.0); RBC 4.79 10^6/uL (3.5-6.1); RED CELL DISTRIBUTION WIDTH 12.8 % (11.5-14.5); WHITE BLOOD COUNT 6.5 10^3/uL (4.5-11.0)
[2018-08-25 09:05] LABS: CK-MB 0.3 ng/mL (0.0-3.6)
--- NOTE | 2018-08-25 10:34 | PCM.EEG ---
Electroencephalogram Report - Electroencephalogram Report Procedure Date: 08/24/18 Medication: Ketorolac, pantoprazole Interpretation: Technical Information: This was a 16 -channel EEG, 1-channel EKG routine EEG performed using an [employer] machine. Electrodes were applied using the 10/20 international placement system. Start; 13;31 End; ;18 Total 47 minutes. Clinical Information: 37 y/o man with an episode of LOC. During resting wakefulness there was a symmetric posterior dominant rhythm at 8.5-9.5 Hz, 30-50 uV, which was reactive to eye opening and closing. . Drowsiness was associated with fragmentation of the posterior dominant rhythm and with slow roving eye movements seen at 13;41. . Light sleep was recorded and was characterized by central vertex waves, sleep spindles, and bilateral theta slowin seen at 14;00. Hyperventilation and photic stimulation were performed and there were no changes on the record. Focal abnormality; none ECG was associated with a normal sinus rhythm. Impression: This is a normal awake drowsy and sleep electroencephalogram.
--- NOTE | 2018-08-25 10:47 | RAD ---
Date of service: 08/25/2018 PROCEDURE: Cervical Spine Radiographs. HISTORY: Pain. COMPARISON: None available. FINDINGS: BONES: There is reversal of the normal lordotic curvature. This could be due to muscular spasm or positioning. DISC SPACES: Disc degeneration with anterior osteophytes at C5-6 and C6-7 SOFT TISSUES: Normal. No prevertebral soft tissue swelling. OTHER FINDINGS: None. IMPRESSION: Reversal of the normal lordotic curvature. Mild disc degeneration C5-6 and C6-7
--- NOTE | 2018-08-25 10:48 | RAD ---
Date of service: 08/25/2018 HISTORY: N COMPARISON: No prior. FINDINGS: BONES: Alignment maintained. No fracture. DISC SPACES: Normal. SOFT TISSUES: Normal. OTHER FINDINGS: None. IMPRESSION: Normal radiographs of the thoracic spine.
--- NOTE | 2018-08-25 10:49 | RAD ---
Date of service: 08/25/2018 PROCEDURE: Radiographs of the Lumbar Spine. HISTORY: N COMPARISON: No prior. FINDINGS: BONES: Normal alignment. No listhesis. No fracture. DISC SPACES: Disc degeneration is seen at L5-S1 with loss of disc height OTHER FINDINGS: None. IMPRESSION: Disc degeneration L5-S1
[2018-08-25 11:38] VITALS: BP 129/89; TEMP 98.1
[2018-08-25 14:15] VITALS: PULSE 64
[2018-08-25] MEDS ORDERED: Influenza Vaccine 60 mcg/0.5 mL SYR (4YR UP) IM ONE (14:27)
--- NOTE | 2018-08-25 14:32 | CP.PCM.PN ---
<Romain Huff - Last Filed: 08/25/18 14:13> Subjective - Date & Time of Evaluation Date of Evaluation: 08/25/18 Time of Evaluation: 12:40 - Subjective Subjective: Romain Huff- Internal Medicine Resident- Progress Note on Behalf of Neurology Team Subjective: Patient seen and examined at bedside. No acute events overnight. States back and neck pain has significantly improved relative to baseline. Offers no new complaints at this time. Denies weakness, dizziness, headache, numbness, and focal deficits. 12 point ROS negative except as indicated in the HPI Physical Examination: - Constitutional Appears: Well, Non-toxic, No Acute Distress - Head Exam Head Exam: ATRAUMATIC, NORMAL INSPECTION, NORMOCEPHALIC - Eye Exam Eye Exam: EOMI, Normal appearance - ENT Exam ENT Exam: Mucous Membranes Moist, Normal Exam, No tongue laceration - Neck Exam Neck Exam: Normal Inspection,. absent: Lymphadenopathy, Meningismus - Respiratory Exam Respiratory Exam: Clear to Auscultation Bilateral, NORMAL BREATHING PATTERN. absent: Accessory Muscle Use, Rales, Rhonchi, Wheezes, Respiratory Distress - Cardiovascular Exam Cardiovascular Exam: REGULAR RHYTHM, +S1, +S2 - GI/Abdominal Exam GI & Abdominal Exam: Normal Bowel Sounds, Soft. absent: Distended, Firm, Guarding, Rebound, Rigid, Tenderness - Back Exam Back Exam: NORMAL INSPECTION. absent: CVA tenderness (L), CVA tenderness (R) - Extremities Exam Extremities exam: negative for clubbing and cyanosis - Neurological Exam Neurological exam: awake, alert, orientated x 3, responds to verbal stimuli, answers questions appropriately, follows commands, moves extremities past midline, ambulates without overt difficulty, muscle strength 5/5 all extremities, sensation intact to touch throughout, CN II- XII intact bilaterally - Skin Skin Exam: Intact, Normal Color, Warm Assessment and Plan: Pt is a 37 year old male with a past medical history of L5 disc herniation who was admitted for evaluation and treatment of back pain with associated syncopal episode. Neurology was consulted for management of syncopal episode. Syncope - 08/23/[address] without contrast- No acute intracranial pathology identified. Partial opacification and fluid involving the paranasal sinuses as above; correlate for acute sinusitis - 08/24/2018 MRI without contrast- Unremarkable non contrast enhanced MRI of the brain. - EEG 08/24/2018- normal awake drowsy and sleep electroencephalogram. - patient ok for discharge from neurology perspective Patient case discussed with and plan approved by attending physician, Dr. Draper. Objective - Vital Signs/Intake and Output Vital Signs (last 24 hours): Temp Pulse Resp BP Pulse Ox 98.1 F 63 20 129/89 98 08/25/18 11:37 08/25/18 11:37 08/25/18 11:37 08/25/18 11:37 08/25/18 05:42 Intake and Output: 08/25/18 08/25/18 06:59 18:59 Intake Total 2445 Balance 2445 - Medications Medications: Current Medications Cyclobenzaprine HCl (Flexeril) 5 mg PO TID PRN PRN Reason: Pain, moderate (4-7) Ketorolac Tromethamine (Toradol) 30 mg IVP Q6 PRN PRN Reason: Pain, moderate (4-7) Last Admin: 08/23/18 21:42 Dose: 30 mg Pantoprazole Sodium (Protonix Ec Tab) 40 mg PO 0600 STANLEY Last Admin: 08/25/18 05:57 Dose: 40 mg - Labs Labs: 08/25/18 06:00 08/25/18 06:00 <Nathan Draper - Last Filed: 08/25/18 17:41> Objective - Vital Signs/Intake and Output Vital Signs (last 24 hours): Temp Pulse Resp BP Pulse Ox 98.1 F 64 20 129/89 98 08/25/18 11:37 08/25/18 14:00 08/25/18 11:37 08/25/18 11:37 08/25/18 05:42 Intake and Output: 08/25/18 08/25/18 06:59 18:59 Intake Total 2445 Balance 2445 - Labs Labs: 08/25/18 06:00 08/25/18 06:00 Assessment and Plan (1) Syncope Status: Acute Attending/Attestation - Attestation I have personally seen and examined this patient.: Yes I have fully participated in the care of the patient.: Yes I have reviewed all pertinent clinical information, including history, physical exam and plan: Yes Notes (Text): 08/25/18 17:40 I agree with the assessment and plan. The patient's EEG was normal. Cardiac work-up is a consideration. No further recommendations from a neurological perspective. Thank you.
--- NOTE | 2018-08-25 14:46 | CP.PCM.DIS ---
<Siri Jorge - Last Filed: 08/25/18 14:25> Provider - Provider Date of Admission: 08/23/18 18:20 Attending physician: Viktoriya Huff DO Primary care physician: NO PRIMARY CARE PROVIDER Time Spent in preparation of Discharge (in minutes): 45 Hospital Course - Lab Results Lab Results: Most Recent Lab Values WBC 6.5 10^3/uL (4.5-11.0) 08/25/18 06:00 RBC 4.79 10^6/uL (3.5-6.1) 08/25/18 06:00 Hgb 14.2 g/dL (14.0-18.0) 08/25/18 06:00 Hct 41.2 % (42.0-52.0) L 08/25/18 06:00 MCV 86.0 fl (80.0-105.0) 08/25/18 06:00 MCH 29.6 pg (25.0-35.0) 08/25/18 06:00 MCHC 34.5 g/dl (31.0-37.0) 08/25/18 06:00 RDW 12.8 % (11.5-14.5) 08/25/18 06:00 Plt Count 161 10^3/uL (120.0-450.0) 08/25/18 06:00 MPV 10.8 fl (7.0-11.0) 08/25/18 06:00 Gran % 74.4 % (50.0-68.0) H 08/23/18 17:37 Lymph % (Auto) 17.9 % (22.0-35.0) L 08/23/18 17:37 Collier % (Auto) 4.9 % (1.0-6.0) 08/23/18 17:37 Eos % (Auto) 2.7 % (1.5-5.0) 08/23/18 17:37 Baso % (Auto) 0.1 % (0.0-3.0) 08/23/18 17:37 Gran # 7.32 (1.4-6.5) H 08/23/18 17:37 Lymph # (Auto) 1.8 (1.2-3.4) 08/23/18 17:37 Collier # (Auto) 0.5 (0.1-0.6) 08/23/18 17:37 Eos # (Auto) 0.3 (0.0-0.7) 08/23/18 17:37 Baso # (Auto) 0.01 K/mm3 (0.0-2.0) 08/23/18 17:37 Sodium 142 mmol/L (132-148) 08/25/18 06:00 Potassium 4.4 mmol/L (3.6-5.0) 08/25/18 06:00 Chloride 108 mmol/L (98-107) H 08/25/18 06:00 Carbon Dioxide 28 mmol/L (21-33) 08/25/18 06:00 Anion Gap 10 (10-20) 08/25/18 06:00 BUN 15 mg/dL (7-21) 08/25/18 06:00 Creatinine 1.1 mg/dl (0.8-1.5) 08/25/18 06:00 Est GFR ( Amer) > 60 08/25/18 06:00 Est GFR (Non-Af Amer) > 60 08/25/18 06:00 Random Glucose 90 mg/dL (70-110) 08/25/18 06:00 Calcium 9.0 mg/dL (8.4-10.5) 08/25/18 06:00 Phosphorus 3.3 mg/dL (2.5-4.5) 08/25/18 06:00 Magnesium 2.1 mg/dL (1.7-2.2) 08/25/18 06:00 Total Bilirubin 1.8 mg/dL (0.2-1.3) H 08/25/18 06:00 AST 29 U/L (17-59) 08/25/18 06:00 ALT 25 U/L (7-56) 08/25/18 06:00 Alkaline Phosphatase 70 U/L (38-126) 08/25/18 06:00 Lactate Dehydrogenase 362 U/L (333-699) 08/23/18 17:37 Total Creatine Kinase 241 U/L (35-230) H 08/25/18 06:00 CK-MB (CK-2) 0.3 ng/mL (0.0-3.6) 08/25/18 06:00 CK-MB (CK-2) % Cancelled 08/24/18 06:00 Troponin I < 0.01 ng/mL 08/23/18 17:37 Total Protein 7.5 g/dL (5.8-8.3) 08/25/18 06:00 Albumin 4.1 g/dL (3.0-4.8) 08/25/18 06:00 Globulin 3.4 gm/dL 08/25/18 06:00 Albumin/Globulin Ratio 1.2 (1.1-1.8) 08/25/18 06:00 Urine Color Yellow (YELLOW) 08/23/18 17:37 Urine Appearance Clear (CLEAR) 08/23/18 17:37 Urine pH 6.0 (4.7-8.0) 08/23/18 17:37 Ur Specific [place] >= 1.030 (1.005-1.035) 08/23/18 17:37 Urine Protein Negative mg/dL (<30 mg/dL) 08/23/18 17:37 Urine Glucose (UA) Negative mg/dL (NEGATIVE) 08/23/18 17:37 Urine Ketones Negative mg/dL (NEGATIVE) 08/23/18 17:37 Urine Blood Negative (NEGATIVE) 08/23/18 17:37 Urine Nitrate Negative (NEGATIVE) 08/23/18 17:37 Urine Bilirubin Negative (NEGATIVE) 08/23/18 17:37 Urine Urobilinogen 0.2 E.U./dL (<1 E.U./dL) 08/23/18 17:37 Ur Leukocyte Esterase Negative Leida/uL (NEGATIVE) 08/23/18 17:37 Urine Opiates Screen Negative (NEGATIVE) 08/23/18 17:37 Urine Methadone Screen Negative (NEGATIVE) 08/23/18 17:37 Ur Barbiturates Screen Negative (NEGATIVE) 08/23/18 17:37 Ur Phencyclidine Scrn Negative (NEGATIVE) 08/23/18 17:37 Ur Amphetamines Screen Negative (NEGATIVE) 08/23/18 17:37 U Benzodiazepines Scrn Negative (NEGATIVE) 08/23/18 17:37 U Oth Cocaine Metabols Negative (NEGATIVE) 08/23/18 17:37 U Cannabinoids Screen Positive (NEGATIVE) H 08/23/18 17:37 Alcohol, Quantitative < 10 mg/dL (0-10) 08/23/18 17:37 - Hospital Course Hospital Course: Upon Admission: Pt is a 37yo M with pmhx of L5 disc herniation who presents to the ED after having an episode of acute sharp R sided back pain earlier today. Pt states that he had walked about 10 miles which is normal for him and then came back home. He then went to his basement and was eating when he stood up and felt sharp R sided back pain. He states that the pain traveled down his R leg and up to his R neck. He then states that after the sudden pain he lost consciousness. He reports that he woke up a few minutes later and was able to get up with his own strength. He denies biting his tongue, or having any bladder or bowel incontinence upon regaining consciousness. He also denies having a history of seizures. He denies ever having this type of pain before. He reports being able to get up by himself and then calling the ambulance. He is currently denying fevers, but admits to chills, denies lightheadedness, denies weakness, but admits to headache and R sided leg numbness. He also denies chest pain, SOB, cough, palpitations, abd pain, n/v, saddle anesthesia, bladder or bowel incontinence, dysuria, hematuria, urinary frequency, heat or cold intolerance. Hospital Course: Cardiology and neruology was consulted for syncopal episode s/p sharp back pain. CT head was ordered in the ED and showed no acute intracranial pathology. Lumbar spine CT showed L3-4 and L4-5 mild disc bulge, L5-S1 showed Disc bulge and mild b/l foraminal stenosis with no focal disc herniation noted on CT. XR of cervic al, thoracic and lumbar spine showed, mild disc degeneration C5-6 and C6-7 and reversal of normal lordotic curve in cervical region, normal XR of thoracic spine and disc degeneration L5-S1 with no evidence of compression fracture. EEG was also performed and read by neuro which showed normal wake, drowsy and sleep EEG. Echo was ordered and it showed normal LV function with normal LVEF with no wall motion abnormalities. Per neuro and cardio pt is cleared for discharge with no further work up needed at this time. Pt is informed of all findings and the plan for discharge. Pt shows understanding of results and is in agreement with the medical plan for discharge. Pt had all questions and concerns address prior to d/c. Upon Discharge: Pt was given specific instructions including: - Your creatinine kinase level is high, likely from muscle damage after the fall. Please drink adequate water to facility clearance of the enzymes and to protect kidneys. Recheck the level at your primary care doctor at the appointment on 09/12/18. - Please inform your primary medical doctor about your adverse reaction to flexeril for muscle spasms since you have reported feelings of depression while taking it within the hospital - Please refrain from lifting anything heavy or intense exercise until cleared by your primary care doctor. - Please stay well hydrated, particularly after strenuous exercise. But no strenuous exercise until clearance by primary care doctor. - Please return to the emergency Department if you have any returning, worsening or new symptoms We had made an appointment for you at [facility]. This will be your new primary care doctor - Sep 12, 2018 at 3:30pm. Please call for confirmation [phone] Pt showed understanding of discharge and follow up instructions. All questions and concerns about discharge instructions were addressed prior to the pts discharge and the pt was in agreement with the plan. Discharge Exam - Head Exam Head Exam: ATRAUMATIC, NORMAL INSPECTION, NORMOCEPHALIC - Eye Exam Eye Exam: EOMI, Normal appearance, PERRL - Respiratory Exam Respiratory Exam: NORMAL BREATHING PATTERN, UNREMARKABLE. absent: Accessory Muscle Use, Decreased Breath Sounds, Rales, Rhonchi, Wheezes, Respiratory Distress, Stridor - Cardiovascular Exam Cardiovascular Exam: RRR, +S1, +S2. absent: Gallop, Rubs - GI/Abdominal Exam GI & Abdominal Exam: Normal Bowel Sounds, Soft, Unremarkable. absent: Firm, Guarding, Tenderness - Extremities Exam Extremities exam: normal capillary refill, normal inspection, pedal pulses present - Back Exam Back exam: NORMAL INSPECTION. absent: CVA tenderness (L), CVA tenderness (R) - Neurological Exam Neurological exam: Alert, Oriented x3 Additional comments: Motor sensory intact, with no numbness, weakness or tingling in any extremity. - Psychiatric Exam Psychiatric exam: Normal Affect, Normal Mood - Skin Skin Exam: Dry, Intact, Normal Color, Warm Discharge Plan - Follow Up Plan Condition: IMPROVED Disposition: HOME/ ROUTINE Instructions: Low Back Pain (DC), Syncope (Fainting) (DC), Back Pain (GEN) Additional Instructions: Your creatinine kinase level is high, likely from muscle damage after the fall. Please drink adequate water to facility clearance of the enzymes and to protect kidneys. Recheck the level at your primary care doctor at the appointment on 09/12/18. - Please inform your primary medical doctor about your adverse reaction to flexeril for muscle spasms since you have reported feelings of depression while taking it within the hospital - Please refrain from lifting anything heavy or intense exercise until cleared by your primary care doctor. - Please stay well hydrated, particularly after strenuous exercise. But no strenuous exercise until clearance by primary care doctor. - Please return to the emergency Department if you have any returning, worsening or new symptoms We had made an appointment for you at [facility]. This will be your new primary care doctor. Please have all of your [facility] paperwork completed before your appointment. - Sep 12, 2018 at 3:30pm. Please call for confirmation [phone] Referrals: [facility] [place] <Viktoriya Huff - Last Filed: 08/26/18 02:45> Provider - Provider Date of Admission: 08/23/18 18:20 Attending physician: Viktoriya Huff DO Primary care physician: NO PRIMARY CARE PROVIDER Hospital Course - Lab Results Lab Results: Most Recent Lab Values WBC 6.5 10^3/uL (4.5-11.0) 08/25/18 06:00 RBC 4.79 10^6/uL (3.5-6.1) 08/25/18 06:00 Hgb 14.2 g/dL (14.0-18.0) 08/25/18 06:00 Hct 41.2 % (42.0-52.0) L 08/25/18 06:00 MCV 86.0 fl (80.0-105.0) 08/25/18 06:00 MCH 29.6 pg (25.0-35.0) 08/25/18 06:00 MCHC 34.5 g/dl (31.0-37.0) 08/25/18 06:00 RDW 12.8 % (11.5-14.5) 08/25/18 06:00 Plt Count 161 10^3/uL (120.0-450.0) 08/25/18 06:00 MPV 10.8 fl (7.0-11.0) 08/25/18 06:00 Gran % 74.4 % (50.0-68.0) H 08/23/18 17:37 Lymph % (Auto) 17.9 % (22.0-35.0) L 08/23/18 17:37 Collier % (Auto) 4.9 % (1.0-6.0) 08/23/18 17:37 Eos % (Auto) 2.7 % (1.5-5.0) 08/23/18 17:37 Baso % (Auto) 0.1 % (0.0-3.0) 08/23/18 17:37 Gran # 7.32 (1.4-6.5) H 08/23/18 17:37 Lymph # (Auto) 1.8 (1.2-3.4) 08/23/18 17:37 Collier # (Auto) 0.5 (0.1-0.6) 08/23/18 17:37 Eos # (Auto) 0.3 (0.0-0.7) 08/23/18 17:37 Baso # (Auto) 0.01 K/mm3 (0.0-2.0) 08/23/18 17:37 Sodium 142 mmol/L (132-148) 08/25/18 06:00 Potassium 4.4 mmol/L (3.6-5.0) 08/25/18 06:00 Chloride 108 mmol/L (98-107) H 08/25/18 06:00 Carbon Dioxide 28 mmol/L (21-33) 08/25/18 06:00 Anion Gap 10 (10-20) 08/25/18 06:00 BUN 15 mg/dL (7-21) 08/25/18 06:00 Creatinine 1.1 mg/dl (0.8-1.5) 08/25/18 06:00 Est GFR ( Amer) > 60 08/25/18 06:00 Est GFR (Non-Af Amer) > 60 08/25/18 06:00 Random Glucose 90 mg/dL (70-110) 08/25/18 06:00 Calcium 9.0 mg/dL (8.4-10.5) 08/25/18 06:00 Phosphorus 3.3 mg/dL (2.5-4.5) 08/25/18 06:00 Magnesium 2.1 mg/dL (1.7-2.2) 08/25/18 06:00 Total Bilirubin 1.8 mg/dL (0.2-1.3) H 08/25/18 06:00 AST 29 U/L (17-59) 08/25/18 06:00 ALT 25 U/L (7-56) 08/25/18 06:00 Alkaline Phosphatase 70 U/L (38-126) 08/25/18 06:00 Lactate Dehydrogenase 362 U/L (333-699) 08/23/18 17:37 Total Creatine Kinase 241 U/L (35-230) H 08/25/18 06:00 CK-MB (CK-2) 0.3 ng/mL (0.0-3.6) 08/25/18 06:00 CK-MB (CK-2) % Cancelled 08/24/18 06:00 Troponin I < 0.01 ng/mL 08/23/18 17:37 Total Protein 7.5 g/dL (5.8-8.3) 08/25/18 06:00 Albumin 4.1 g/dL (3.0-4.8) 08/25/18 06:00 Globulin 3.4 gm/dL 08/25/18 06:00 Albumin/Globulin Ratio 1.2 (1.1-1.8) 08/25/18 06:00 Urine Color Yellow (YELLOW) 08/23/18 17:37 Urine Appearance Clear (CLEAR) 08/23/18 17:37 Urine pH 6.0 (4.7-8.0) 08/23/18 17:37 Ur Specific [place] >= 1.030 (1.005-1.035) 08/23/18 17:37 Urine Protein Negative mg/dL (<30 mg/dL) 08/23/18 17:37 Urine Glucose (UA) Negative mg/dL (NEGATIVE) 08/23/18 17:37 Urine Ketones Negative mg/dL (NEGATIVE) 08/23/18 17:37 Urine Blood Negative (NEGATIVE) 08/23/18 17:37 Urine Nitrate Negative (NEGATIVE) 08/23/18 17:37 Urine Bilirubin Negative (NEGATIVE) 08/23/18 17:37 Urine Urobilinogen 0.2 E.U./dL (<1 E.U./dL) 08/23/18 17:37 Ur Leukocyte Esterase Negative Leida/uL (NEGATIVE) 08/23/18 17:37 Urine Opiates Screen Negative (NEGATIVE) 08/23/18 17:37 Urine Methadone Screen Negative (NEGATIVE) 08/23/18 17:37 Ur Barbiturates Screen Negative (NEGATIVE) 08/23/18 17:37 Ur Phencyclidine Scrn Negative (NEGATIVE) 08/23/18 17:37 Ur Amphetamines Screen Negative (NEGATIVE) 08/23/18 17:37 U Benzodiazepines Scrn Negative (NEGATIVE) 08/23/18 17:37 U Oth Cocaine Metabols Negative (NEGATIVE) 08/23/18 17:37 U Cannabinoids Screen Positive (NEGATIVE) H 08/23/18 17:37 Alcohol, Quantitative < 10 mg/dL (0-10) 08/23/18 17:37 Attending/Attestation - Attestation I have personally seen and examined this patient.: Yes I have fully participated in the care of the patient.: Yes I have reviewed all pertinent clinical information, including history, physical exam and plan: Yes Notes (Text): Patient seen and examined by me with resident 1:50PM on 08/25/18. Case including discharge plan discussed with resident. Agree with above with following additions/corrections. Patient is a 37-year-old male with past medical history significant for L5 disc herniation that presented to the emergency room with syncope status post having acute sharp right-sided back pain. Please see H&P for full details. Patient was admitted with acute back pain with history of L5 disc herniation with syncopal episode. Patient was started on Toradol as needed for pain. Neurology was consulted. Cardiology was consulted. CT head per radiologist showed no intracranial hemorrhage. Brain MRI per radiologist showed no mass affect or edema, no atrophy or chronic microvascular ischemic changes. CT lumbar spine per radiologist showed mild disc bulge at L3-L4 and L4-L5, disc bulge and degeneration at L5-S1 with mild foraminal stenosis, no focal disc herniation. Lumbar spine x-ray per radiologist showed disc degeneration L5-S1. Thoracic spine x-ray per radiologist showed normal radiographs of the thoracic spine. Cervical spine x-ray per radiologist showed reversal of the normal lordotic curvature, mild disc degeneration C5-C6 and C6-C7. 2-D echo per plant operations worker showed left ventricle is normal size, normal left ventricular wall thickness, left ventricular function is normal, left ventricular ejection fraction is within normal range, normal LV segmental wall motion, left ventricular diastolic function is normal, mild tricuspid regurgitation. EEG per neurologist showed normal awake and drowsy and sleep electroencephalogram. Per neurology, likely vasovagal syncope due to severe pain. Patient was cleared for discharge by neurology. Per cardiology no further cardiac workup indicated at this time. Patient was cleared for discharge by cardiology. Patient was feeling much better. Back pain resolved. Vital signs were stable. Patient had no leukocytosis and remained afebrile. No signs of infection. Patient did have slightly elevated CPK at 297 which did improve to 241 with IV fluids. Patient was counseled on staying hydrated at home. Patient was discharged home. On day of discharge, patient stated that he was feeling much better. Denied any back pain. No lightheadedness or loss of consciousness in the hospital. No headaches or dizziness. No change of vision. No chest pain or shortness of breath. No nausea, vomiting, or abdominal pain. No fevers or chills. No dysuria. No diarrhea or constipation. Ambulating without any difficulty. Physical exam: General: Awake and alert lying in bed in no acute distress HEENT: Normocephalic, atraumatic. Extraocular muscles intact, pupils equal and reactive, positive scleral icterus. Oropharynx is pink and moist. Neck is supple. Cardiovascular: Regular rhythm. Normal S1 and S2. No murmurs, rubs, or gallops appreciated Pulmonary: Normal respiratory effort. No rhonchi, rales, or wheezing appreciated. Gastrointestinal: Soft, nondistended. Nontender. Positive bowel sounds all 4 quadrants. No guarding. Musculoskeletal: Moves all extremities. No calf tenderness. No CVA tenderness. No edema appreciated. Central nervous system: AAO x3, CN 2-12 grossly intact. [address] rength all extremities. Dermatologic: Skin warm and dry. Please see chart for full details. Follow up instructions: Patient to follow up at [facility] to establish with a primary care doctor on Sep 12, 2018 at 3:30pm. Patien to have repeat CPK at this appointment. All instructions explained to patient in detail. Patient both understands and agrees to all instructions. Written instructions also given. Time spent in discharging the patient including chart review, medication reconciliation, discussion with the patient, medical coding manager, consultants, accepting hospital, and nursing staff was 40 minutes.
--- NOTE | 2018-08-25 17:18 | PN ---
DATE: 08/25/2018 SUBJECTIVE: The patient denies any dizziness or shortness of breath. He is still experiencing low back pain. PHYSICAL EXAMINATION: GENERAL: The patient has marfanoid habitus. VITAL SIGNS: Blood pressure 117/63, heart rate 63, temperature 98, and respirations 20. HEENT: Normocephalic. CHEST: Clear. HEART: S1 and S2 regular. EXTREMITIES: No edema. LABORATORY DATA: Echocardiographic study revealed normal ventricular size and ejection fraction. The aortic root measured 2.9 cm. Cervical spine x-ray revealed reversal of lordotic curvature, mild degeneration at C5-C6 and C6-C7. Thoracic spine x-ray showed normal study and lumbar spine x-ray showed disk degeneration at L5-S1. EEG showed normal study. ASSESSMENT: 1. Syncopal episode. 2. Chronic back pain. 3. Cannabinoid abuse. 4. Marfanoid habitus. RECOMMENDATIONS: Case was discussed with medical videographer as well as Neurology team. No further cardiac workup is indicated at this time. Joaquin Gallegos MD
== END 2018-08-25 14:48 | disposition home or self-care (01) ==
LOC: ED 16:27 → ERH 18:20 → 2RNO 21:54
PROVIDERS: ADMIT Hospitalist; ATTEND Hospitalist
DX: R55 Syncope and collapse (principal); M48.061 Spinal stenosis, lumbar region without neurogenic claudication; M51.26 Other intervertebral disc displacement, lumbar region; M51.36 Other intervertebral disc degeneration, lumbar region; G89.29 Other chronic pain; F12.10 Cannabis abuse, uncomplicated; I07.1 Rheumatic tricuspid insufficiency; Z87.891 Personal history of nicotine dependence; Z23 Encounter for immunization
CPT/HCPCS: 36415; 70450; 70551; 71045; 72040; 72070; 72100; 72131; 80053; 81003; 82550; 82553; 83615; 83735; 84100; 84484; 85025; 85027; 90674; 93005; 93306; 95812; 96374; 96375; 96376; 99285; G0008; G0378; G0480; J1885; J2405; J7030